=== PATIENT | female | born 1980 | race Caucasian/White ===

== ENCOUNTER → 2017-07-27 | Outpatient (CLI) | payer OTHER, SELFPAY ==
[2017-07-27 14:08] VITALS: TEMP 37.2
[2017-07-27 16:00] LABS: Add Manual Diff / Slide Review NO; Basophils Percent Auto 0.8 % (0-2); Eosinophils Percent Auto 0.6 % (2-4); Hematocrit 35.6 % (36-46); Hemoglobin 11.9 g/dL (12.0-16.0); Lymphocytes Percent Auto 28.6 % (25-40); Mean Corpuscular HGB Conc 33.5 % (30-36); Mean Corpuscular Hemoglobin 29.2 PG (26-34); Mean Corpuscular Volume 87.1 fL (80-100); Monocytes Percent Auto 9.7 % (3-14); Neutrophils Absolute Auto 2900 /uL (3000-5900); Neutrophils Percent Auto 60.3 % (50-75); Platelet Count 206 X10^3/uL (150-400); Red Blood Cell Count 4.09 X10^6/uL (4.0-5.2); Red Cell Distribution Width 13.8 % (11.6-14.8); White Blood Cell Count 4.7 X10^3/uL (4.5-11.0)
[2017-07-27 16:51] LABS: Alanine Aminotransferase 24 IU/L (9-52); Albumin 4.4 g/dL (3.5-5.0); Albumin Globulin Ratio 1.3 (1.0-2.8); Alkaline Phosphatase 61 U/L (38-126); Aspartate Aminotransferase 22 IU/L (14-36); Bilirubin Total 0.7 mg/dL (0.2-1.3); Calcium 9.2 mg/dL (8.4-10.2); Cholesterol 157 mg/dL (140-199); Estimated Glomerular Filt Rate > 60.0 mL/min (>60); Globulin 3.4 g/dL (1.7-4.1); Glucose 87 mg/dL (70-100); HDL Cholesterol 70 mg/dL (40-60); HEMOLYSIS < 15 (0-50); LDL Cholesterol Calculated 75 mg/dL (<100); Sodium 137 mmol/L (137-145); Total Protein 7.8 g/dL (6.3-8.2); Triglycerides 59 mg/dL (35-150)
[2017-07-27 17:58] LABS: Thyroid Stimulating Hormone 0.92 uIU/mL (0.47-4.68)
== END ==
PROVIDERS: PCP Internal Medicine; Visit Provider Internal Medicine
DX: F32.81 Premenstrual dysphoric disorder (principal); R00.2 Palpitations
CPT/HCPCS: 36415; 80053; 80061; 84443; 85025

== ENCOUNTER 2017-08-13 12:40 | Emergency (ER) | payer OTHER, SELFPAY ==
[2017-08-13 12:50] VITALS: BP 146/90; PULSE 84; RESP 20; TEMP 36.1; O2SAT 98; BMI 30.9
--- NOTE | 2017-08-13 13:10 | ED_ITS ---
HPI - Weakness <ELAINA Roger - Last Filed: 08/13/17 22:05> General Chief complaint: Weakness Stated complaint: POSSIBLE ANEMIA Time Seen by Provider: 08/13/17 13:20 Source: patient History of Present Illness HPI Narrative: 37-year-old female recently treated by primary care provider for anemia states that she has had weakness and increased tiredness over the past week. She states that after finding out that she had mild anemia she had a heavy period and then had increased weakness after her period. She states that she was instructed to eat iron rich foods to help with the anemia. She also reports that she has had chest pain for the last 4 days. She denies any stressors for the chest pain or any relievers. She does state that she has anxiety and has had panic attacks in the past and that her chest pain may be related to anxiety. Positive p.o. intake no nausea or vomiting. No diaphoresis. No shortness of breath. She was able to ambulate into the emergency room today. She also states that she has been feeling anxious at times. Related Data Home Medications Medication Instructions Recorded Confirmed clonidine HCl 0.1 mg tablet 0.1 mg PO BID 07/27/17 08/13/17 alprazolam 0.5 mg PO DAILY 08/13/17 08/13/17 lisdexamfetamine [Vyvanse] 60 mg PO DAILY 08/13/17 08/13/17 montelukast 10 mg PO DAILY 08/13/17 08/13/17 Allergies Allergy/AdvReac Type Severity Reaction Status Date / Time hydrocodone [From Vicodin] Allergy Mild NAUSEA Unverified 07/27/17 14:06 Review of Systems <ELAINA Roger - Last Filed: 08/13/17 22:05> Constitutional Reports weakness Eyes Denies change in vision, Denies eye discharge, Denies irritation and Denies loss of vision ENT Ears, Nose, Mouth, and Throat: Denies change in voice, Denies neck pain and Denies sore throat Cardiovascular Reports chest pain, Denies dyspnea and Denies dyspnea on exertion Respiratory Denies cough, Denies dyspnea, Denies dyspnea on exertion and Denies wheezing Musculoskeletal Denies neck pain Integumentary/Breasts Denies pruritus, Denies erythema, Denies rash and Denies wounds Neurologic Denies loss of vision and Reports weakness Allergic/Immunologic Denies wheezing Exam <ELAINA Roger - Last Filed: 08/13/17 22:05> Initial Vital Signs Initial Vital Signs: Vital Signs Temperature 97.0 F L 08/13/17 12:50 Pulse Rate 84 08/13/17 12:50 Respiratory Rate 20 08/13/17 12:50 Blood Pressure 146/90 H 08/13/17 12:50 Pulse Oximetry 98 08/13/17 12:50 Const General: cooperative and well developed Nutritional Appearance: well nourished Orientation: alert, awake, oriented x3 and not confused HENNJ Mouth: oral mucosae normal, oropharynx normal and moist mucous membranes Eyes Conjunctivae: conjunctivae normal Sclera: sclerae normal Pupils: PERRL EOM: EOM intact bilaterally Resp Effort & Inspection: normal respiratory effort, able to speak in complete sentences, no respiratory distress and no use of accessory muscles Auscultation: clear to auscultation bilaterally, no rales, no rhonchi and no wheezes Cardio Rate: regular rate Rhythm: regular rhythm Heart Sounds: no click, no gallops, no murmurs and no rubs Pulses: normal peripheral pulses GI Inspection: non-distended Palpation: soft, no hepatosplenomegaly, No guarding, No pulsatile mass and No tender Auscultation: normal bowel sounds Skin General: no rashes or lesions noted, No jaundice and No petechiae Neuro General: alert, oriented x3, gait normal and no focal motor deficits Speech: speech normal <Gregg Crouch DO - Last Filed: 08/14/17 08:21> Initial Vital Signs Initial Vital Signs: Vital Signs Temperature 97.0 F L 08/13/17 12:50 Pulse Rate 84 08/13/17 12:50 Respiratory Rate 20 08/13/17 12:50 Blood Pressure 146/90 H 08/13/17 12:50 Pulse Oximetry 98 08/13/17 12:50 Course <ELAINA Roger - Last Filed: 08/13/17 22:05> Orders Ordered: ED Orders 08/13/17 13:29 XR chest 1V Stat EKG-12 Lead Stat 08/13/17 14:15 Complete Blood Count AUTO DIFF Stat Comprehensive Metabolic Panel Stat Troponin with CK Cardiac Panel Stat Vital Signs - 8 hr 08/13/17 15:57 Pulse Rate 73 Respiratory Rate 20 Blood Pressure 107/72 Pulse Oximetry 98 <Gregg Crouch DO - Last Filed: 08/14/17 08:21> Orders Ordered: ED Orders 08/13/17 13:29 XR chest 1V Stat EKG-12 Lead Stat 08/13/17 14:15 Complete Blood Count AUTO DIFF Stat Comprehensive Metabolic Panel Stat Troponin with CK Cardiac Panel Stat Vital Signs - 8 hr 08/13/17 15:57 Pulse Rate 73 Respiratory Rate 20 Blood Pressure 107/72 Pulse Oximetry 98 MDM - Weakness <ELAINA Roger - Last Filed: 08/13/17 22:05> Lab Data Result diagrams: 08/13/17 14:15 08/13/17 14:15 Lab Results 08/13/17 08/13/17 08/13/17 Range/Units 14:15 14:15 14:15 WBC 6.4 (4.5-11.0) X10^3/uL RBC 4.36 (4.0-5.2) X10^6/uL Hgb 13.0 (12.0-16.0) g/dL Hct 38.1 (36-46) % MCV 87.3 (80-100) fL MCH 29.7 (26-34) PG MCHC 34.1 (30-36) % RDW 14.2 (11.6-14.8) % Plt Count 271 (150-400) X10^3/uL Neut % (Auto) 56.1 (50-75) % Lymph % (Auto) 37.5 (25-40) % [place] % (Auto) 4.9 (3-14) % Eos % (Auto) 0.4 L (2-4) % Baso % (Auto) 1.1 (0-2) % Neut # (Auto) 3600 (9546-2419) /uL Sodium 140 (137-145) mmol/L Potassium 4.2 (3.4-5.1) mmol/L Chloride 103.0 (98-107) mmol/L Carbon Dioxide 24.0 (22-32) mmol/L BUN 10.0 (7-17) mg/dL Creatinine 0.50 L (0.52-1.04) mg/dL Estimated GFR > 60.0 (>60) mL/min BUN/Creatinine Ratio 20.0 (6-22) Glucose 82 (70-100) mg/dL Calcium 9.3 (8.4-10.2) mg/dL Total Bilirubin 0.8 (0.2-1.3) mg/dL AST 19 (14-36) IU/L ALT 22 (9-52) IU/L Alkaline Phosphatase 51 (38-126) U/L Total Creatine Kinase 59 (30-135) U/L Troponin I < 0.012 (0.01-0.034) ng/mL Total Protein 7.5 (6.3-8.2) g/dL Albumin 4.3 (3.5-5.0) g/dL Globulin 3.2 (1.7-4.1) g/dL Albumin/Globulin Ratio 1.3 (1.0-2.8) Imaging Data Chest x-ray: Radiologist's impression: PROCEDURE: XR CHEST 1V INDICATIONS: weakness and chest pain TECHNIQUE: One view of the chest was acquired. COMPARISON: [facility], , CHEST 2 VIEW, 02/08/2015, 21:18. FINDINGS: Surgical changes and devices: None. Lungs and pleura: No pleural effusions or pneumothorax. Lungs are clear. Mediastinum: Mediastinal contours appear normal. Heart size is normal. Bones and chest wall: No suspicious bony lesions. Overlying soft tissues appear unremarkable. IMPRESSION: No acute disease. ECG Data Interpretation: EKG shows sinus rhythm with occasional PVCs. No ST elevation or depression. No other ectopy. P are interval of 152. QRS duration of 98. QTC of 406 MDM Narrative Medical decision making narrative: EKG shows normal sinus rhythm with PVCs but no other abnormal findings. Cardiac enzymes were obtained were unremarkable. CBC and Chem panel were normal with no anemia. Chest x-ray showed no acute findings. No emergent causes of her at chest pain and symptoms. Suspect her anxiety as cause. She is instructed to follow up with primary care provider. Return emergency room for any worsening symptoms. <Gregg Crouch, DO - Last Filed: 08/14/17 08:21> Lab Data Lab Results 08/13/17 08/13/17 08/13/17 Range/Units 14:15 14:15 14:15 WBC 6.4 (4.5-11.0) X10^3/uL RBC 4.36 (4.0-5.2) X10^6/uL Hgb 13.0 (12.0-16.0) g/dL Hct 38.1 (36-46) % MCV 87.3 (80-100) fL MCH 29.7 (26-34) PG MCHC 34.1 (30-36) % RDW 14.2 (11.6-14.8) % Plt Count 271 (150-400) X10^3/uL Neut % (Auto) 56.1 (50-75) % Lymph % (Auto) 37.5 (25-40) % [place] % (Auto) 4.9 (3-14) % Eos % (Auto) 0.4 L (2-4) % Baso % (Auto) 1.1 (0-2) % Neut # (Auto) 3600 (1431-3443) /uL Sodium 140 (137-145) mmol/L Potassium 4.2 (3.4-5.1) mmol/L Chloride 103.0 (98-107) mmol/L Carbon Dioxide 24.0 (22-32) mmol/L BUN 10.0 (7-17) mg/dL Creatinine 0.50 L (0.52-1.04) mg/dL Estimated GFR > 60.0 (>60) mL/min BUN/Creatinine Ratio 20.0 (6-22) Glucose 82 (70-100) mg/dL Calcium 9.3 (8.4-10.2) mg/dL Total Bilirubin 0.8 (0.2-1.3) mg/dL AST 19 (14-36) IU/L ALT 22 (9-52) IU/L Alkaline Phosphatase 51 (38-126) U/L Total Creatine Kinase 59 (30-135) U/L Troponin I < 0.012 (0.01-0.034) ng/mL Total Protein 7.5 (6.3-8.2) g/dL Albumin 4.3 (3.5-5.0) g/dL Globulin 3.2 (1.7-4.1) g/dL Albumin/Globulin Ratio 1.3 (1.0-2.8) Discharge Plan Departure Patient Disposition: Home, Self-Care Clinical Impression: Weakness, Chest pain Discharge Date/Time: 08/13/17 15:57 Interventions: ED Discharge Assessment Last Done: 08/13/17 15:57 Instructions: DI for Atypical Chest Pain Activity Restrictions/Additional Instructions: Laboratory results, EKG chest x-ray were normal today. No emergent causes of a or symptoms are seen today. Suspect anxiety may be playing a role. Follow up with her primary care provider. Return emergency room for any worsening symptoms. Prescriptions: No Action clonidine HCl 0.1 mg tablet 0.1 mg PO BID RF: 0 alprazolam 0.5 mg tablet 0.5 mg PO DAILY RF: 0 montelukast 10 mg tablet 10 mg PO DAILY RF: 0 lisdexamfetamine [Vyvanse] 60 mg capsule 60 mg PO DAILY RF: 0 Referrals: Prema Garcia ARNP [Primary Care Provider] - <Gregg Crouch DO - Last Filed: 08/14/17 08:21> Cosign ED Attending Cosignature Attestation: I was immediately available in the department for consultation. This documentation has been reviewed and I agree with assessment and plan. Supervised by Gregg Crouch DO
--- NOTE | 2017-08-13 13:29 | DI.RAD.S_ITS ---
PROCEDURE: XR CHEST 1V INDICATIONS: weakness and chest pain TECHNIQUE: One view of the chest was acquired. COMPARISON: [facility], , CHEST 2 VIEW, 02/08/2015, 21:18. FINDINGS: Surgical changes and devices: None. Lungs and pleura: No pleural effusions or pneumothorax. Lungs are clear. Mediastinum: Mediastinal contours appear normal. Heart size is normal. Bones and chest wall: No suspicious bony lesions. Overlying soft tissues appear unremarkable. IMPRESSION: No acute disease. Dictated by: Hugo Bearden M.D. on 08/13/2017 at 13:50 Approved by: Hugo Bearden M.D. on 08/13/2017 at 13:51
[2017-08-13 14:24] LABS: Add Manual Diff / Slide Review NO; Basophils Percent Auto 1.1 % (0-2); Eosinophils Percent Auto 0.4 % (2-4); Hematocrit 38.1 % (36-46); Lymphocytes Percent Auto 37.5 % (25-40); Mean Corpuscular HGB Conc 34.1 % (30-36); Mean Corpuscular Hemoglobin 29.7 PG (26-34); Mean Corpuscular Volume 87.3 fL (80-100); Monocytes Percent Auto 4.9 % (3-14); Neutrophils Absolute Auto 3600 /uL (3000-5900); Neutrophils Percent Auto 56.1 % (50-75); Platelet Count 271 X10^3/uL (150-400); Red Blood Cell Count 4.36 X10^6/uL (4.0-5.2); Red Cell Distribution Width 14.2 % (11.6-14.8); White Blood Cell Count 6.4 X10^3/uL (4.5-11.0)
[2017-08-13 14:34] LABS: Creatine Kinase 59 U/L (30-135)
[2017-08-13 14:47] LABS: Troponin I < 0.012 ng/mL (0.01-0.034)
[2017-08-13 14:50] LABS: Alanine Aminotransferase 22 IU/L (9-52); Albumin 4.3 g/dL (3.5-5.0); Albumin Globulin Ratio 1.3 (1.0-2.8); Alkaline Phosphatase 51 U/L (38-126); Aspartate Aminotransferase 19 IU/L (14-36); Bilirubin Total 0.8 mg/dL (0.2-1.3); Calcium 9.3 mg/dL (8.4-10.2); Estimated Glomerular Filt Rate > 60.0 mL/min (>60); Globulin 3.2 g/dL (1.7-4.1); Glucose 82 mg/dL (70-100); HEMOLYSIS 30 (0-50); Potassium 4.2 mmol/L (3.4-5.1); Sodium 140 mmol/L (137-145); Total Protein 7.5 g/dL (6.3-8.2)
[2017-08-13 15:57] VITALS: BP 107/72; PULSE 73; RESP 20; O2SAT 98
== END 2017-08-13 15:57 | disposition home or self-care (01) ==
PROVIDERS: Emergency Provider Nurse Practitioner Family; PCP Internal Medicine
DX: R53.1 Weakness (principal); R07.9 Chest pain, unspecified
CPT/HCPCS: 36591; 71045; 80053; 82550; 82553; 84484; 85025; 93005; 99283; 99284